=== PATIENT | female | born 1990 ===

== ENCOUNTER → 2022-09-29 14:05 | Outpatient (BNVA) | payer OTHER, SELFPAY | PROVIDERS: Referring Provider Family Medicine; Visit Provider Nurse Practitioner Family | DX: S89.91XA Unspecified injury of right lower leg, initial encounter (principal); X50.9XXA Other and unspecified overexertion or strenuous movements or postures, initial encounter | CPT/HCPCS: 99203 ==

== ENCOUNTER 2022-09-29 16:06 | Outpatient (CLI) | payer OTHER, SELFPAY | END 2022-09-29 16:07 | disposition home or self-care (01) | LOC: SPT 16:07 | PROVIDERS: Visit Provider Nurse Practitioner Family | DX: Z46.89 Encounter for fitting and adjustment of other specified devices (principal); M25.561 Pain in right knee | CPT/HCPCS: 97760; L1812 ==

== ENCOUNTER 2022-10-18 14:10 | Outpatient (CLI) | payer OTHER, SELFPAY ==
--- NOTE | 2022-10-18 14:30 | MR_ITS ---
WS: [id number] MRI RIGHT KNEE NONCONTRAST TECHNIQUE: Axial PD, coronal PD fat sat, coronal PD, sagittal PD, and sagittal PD fat-sat images obta ined. CLINICAL INFORMATION: pain COMPARISON: None. FINDINGS: Distal quadriceps and patella tendons are intact. Normal ACL and PCL. Tiny suprapatellar effusion. Normal patella. Normal medial and lateral patellar tenaculum. Normal medial and lateral collateral li gaments. Normal medial meniscus. Radial type tear involving the lateral meniscus with peripheral extrusion of the lateral meniscus. Th is extends to the periphery with blunting of the anterior horn. MR/MR knee RT wo con* [id number] IMPRESSION: 1. Normal ACL and PCL. 2. Acute appearing radial type tear involving the lateral meniscus with periph eral extrusion. Blunting of the anterior horn. Meniscal tear extends to the per iphery. 3. Normal medial meniscus. 4. Medial and lateral collateral ligaments are intact. Outbridge grading:
== END 2022-10-18 14:11 | disposition home or self-care (01) ==
PROVIDERS: Visit Provider Nurse Practitioner Family
DX: S83.281A Other tear of lateral meniscus, current injury, right knee, initial encounter (principal); X58.XXXA Exposure to other specified factors, initial encounter
CPT/HCPCS: 73721

== ENCOUNTER → 2022-10-19 11:09 | Outpatient (BNVA) | payer OTHER, SELFPAY | PROVIDERS: Visit Provider Nurse Practitioner Family | DX: Z01.818 Encounter for other preprocedural examination (principal); S89.91XA Unspecified injury of right lower leg, initial encounter; S83.281A Other tear of lateral meniscus, current injury, right knee, initial encounter; X50.9XXA Other and unspecified overexertion or strenuous movements or postures, initial encounter; Y93.B9 Activity, other involving muscle strengthening exercises | CPT/HCPCS: 36415; 80053; 81001; 85025; 99214 ==

== ENCOUNTER 2022-11-03 08:51 | Day surgery (SDC) | payer OTHER, SELFPAY ==
[2022-11-02 12:57] VITALS: BMI 26.4
[2022-11-03] VITALS (10 sets, daily range): BP systolic 104–128; BP diastolic 67–90; PULSE 63–81; RESP 16–20; TEMP 36.8–36.9; O2SAT 97–100
[2022-11-03] MEDS: ketorolac 30 mg/mL INJ IVP (09:27)
[2022-11-03] MEDS: acetaminophen 1,000 MG/100 ML PIGGYBACK 400 MG IV (09:27)
[2022-11-03] MEDS: sodium chloride 0.9% 1,000 ML 30 ML IV (09:28)
[2022-11-03] MEDS: scopolamine 1.5 Patch 1 PATCH TRANSDERMA (09:39)
--- NOTE | 2022-11-03 09:55 | W.PM.OPSUD ---
Surgery/Procedure H&P Update DATE OF PROCEDURE: November 03, 2022 DATE H&P PERFORMED: 10/19/22 CHANGES TO PREVIOUS DOCUMENTATION: None. No change in HPI from office visit on 10/19/2022. Reviewed patient's MRI she does have a right knee lateral meniscus tear we talked about her treatment options today in preop as this is the first time meeting this patient. She understands her tear pattern as well as the plans for surgery which will be a right knee diagnostic and surgical arthroscopy with partial lateral meniscectomy versus repair. Patient understands the risk benefits complication alternatives with surgery and elects proceed with surgical intervention. All questions answered. PREOP DIAGNOSIS: Right knee lateral meniscus tear PRIMARY INDICATION FOR PROCEDURE: Right knee lateral meniscus tear PLANNED PROCEDURE: Operation Date: 11/03/22 11:05 Proposed Procedures p Right knee diagnostic and surgical arthroscopy with lateral meniscectomy versus meniscal repair 38986,S89.90XA,S83.289A(Right) - Jaspreet Moreno DO
[2022-11-03 10:06] LABS: OR HCG Qualitative Urine Negative (Negative)
--- NOTE | 2022-11-03 10:06 | ANES.PREANE2 ---
Pre-Anesthetic Assessment Height/Weight: Height 1.52 m Weight 61.235 kg Temp Pulse Resp BP Pulse Ox O2 Del Method 98.5 F 63 16 111/76 99 Room Air 11/03/22 09:11 11/03/22 09:11 11/03/22 09:11 11/03/22 09:11 11/03/22 09:11 11/03/22 09:24 Preop Diagnosis: Right knee lateral meniscus tear Operation Date: 11/03/22 11:05 Proposed Procedures p Right knee diagnostic and surgical arthroscopy with lateral meniscectomy versus meniscal repair 63802,S89.90XA,S83.289A(Right) - Jaspreet Josh, DO Familial anesthetic complications: none Was Beta Fabian taken within 24 hours: N/A Was Clonidine taken within 24 hours: N/A Last intake: Intake Last Liquid Date 11/02/22 Last Liquid Time 21:00 Last Solid Date 11/02/22 Last Solid Time 21:00 Social No alcohol and No tobacco Exam alert, oriented x 3, clear to auscultation bilaterally and regular rate & rhythm Airway Submandibular: within normal limits Cervical ROM: within normal limits Mallampati: Class II Dentition: full History/ROS No significant history except as noted Anesthetic Plan ASA status: 1 Anesthesia: General and Regional (specify below) (right adductor blk) Medications/Allergies Home Medications Medication Instructions Recorded Confirmed Last Taken Type Hinge Knee Brace #1 ea 09/29/22 10/19/22 Unknown Rx acetaminophen 500 mg tablet 500 mg PO Q6H PRN Pain 11/02/22 11/03/22 10/31/22 History aspirin 81 mg tablet,delayed 81 mg PO DAILY 2 weeks #14 tabs 11/03/22 Unknown Rx release hydrocodone 5 mg-acetaminophen 325 1 tab PO Q6H PRN pain 5 days #20 11/03/22 Unknown Rx mg tablet tabs ondansetron 4 mg disintegrating 4 mg PO DAILY PRN nausea and 11/03/22 Unknown Rx tablet vomiting 3 days #9 tabs Allergies Allergy/AdvReac Type Severity Reaction Status Date / Time No Known Allergies Allergy Verified 11/03/22 09:16 Current Medications Generic Name Dose Route Start Last Admin Trade Name Freq PRN Reason Stop Dose Admin Sodium Chloride 1,000 mls @ 30 mls/hr 11/03/22 09:15 11/03/22 09:28 Sodium Chloride 0.9% IV 11/04/22 09:14 30 mls/hr .Q24H ARIELLE Administration Data Anesthesia Cardiac Studies: No Data to Display
[2022-11-03] MEDS: ceFAZolin 2,000 MG in sodium chloride 0.9% (plus) 50 ML 100 MG IV (10:09)
--- NOTE | 2022-11-03 10:39 | ANES.PROC ---
Anesthesia Procedures Procedure/Date: 11/03/22 Nerve Block ^: Nerve Block 1: Main Anesthesia: general anesthesia Time Out Performed: Yes Consent: requested by attending/covering physician, from patient, risks and benefits reviewed and patient agrees to proceed Nerve block location: adductor canal (right) Anesthesia monitors applied: pulse oximetry, EKG, BP cuff and oxygen Nerve block position: supine Anesthetic Used: ropivicaine 0.5% Amount of anesthesia used (mL): 20 Ultrasound used to: recognize landmarks Nerve Stimulator Used?: No Interscalene/Femoral BLK: 4 stimuplex 21 g needle used for position and inplane approach Injection: neg aspiration of heme Patient Tolerated Procedure: well Complications: none
[2022-11-03] MEDS: lidocaine-epi 2% 20 mL INJ 40 ML INJECTION (10:46)
--- NOTE | 2022-11-03 11:08 | PM.OP2 ---
Brief Operative Note Date of procedure: 11/03/22 Pre-op diagnosis: Right knee lateral meniscus tear Post-op diagnosis: other (Right knee lateral meniscus tear and extensive synovitis) Procedure Done: Right knee diagnostic and surgical arthroscopy with partial lateral meniscectomy and extensive synovectomy Surgeon: Jaspreet Moreno Estimated blood loss (mL): 5 Complications: none Post-op Plan: Patient may weight-bear as tolerate to the operative extremity-keep pain below threshold Utilize crutches as needed Encourage knee range of motion Ice and elevate as needed for pain and swelling Take pain medication as prescribed Take antinausea medication as needed Take aspirin 81 mg once daily for blood clot prevention May supplement for pain with ibuprofen [id number] as needed Patient should leave dressing on in place for 72 hours, at that time may remove all dressings leave sutures in place may rinse incisions with warm soapy water pat dry and redress with dry dressing. No baths or soaks Follow-up in the orthopedic office in 2 weeks Contact the office for any questions or concerns Condition: stable Disposition: PACU Coding Level of Care Code Acute Code for Dori Ellington
--- NOTE | 2022-11-03 11:12 | PM.PACU ---
PACU note Narrative: Patient is a 32-year-old female who just underwent a right knee diagnostic and surgical arthroscopy with lateral meniscectomy and extensive synovectomy. pt transferred to PACU in stable condition. She is awake and alert. Dressing is dry and in place. Pt can wiggle toes and plantarflex and dorsiflex foot. she can perform straight leg raise, Femoral nerve intact. He has sensation to foot. Distal pulses are palpable toes are warm and well-perfused. Pain is controlled. Exam: awake Disposition: discharged
--- NOTE | 2022-11-03 11:36 | PM.OP ---
Operative Report Date of procedure: November 03, 2022 Pre-op diagnosis: Preop Diagnosis Right knee lateral meniscus tear Senior Communications Specialist: Doron Moreno PA-C PA-C was utilized as an child life assistant in this case for leg position as well as addressing of instrumentation and assistance with executing arthroscopy procedure. He also was used and assistance with closing. Procedure: Post-op diagnosis: Right knee lateral meniscus tear Right knee extensive synovitis Procedure done: Right knee diagnostic and surgical arthroscopy partial lateral meniscectomy Right knee diagnostic and surgical arthroscopy with extensive synovectomy of the medial lateral and patellofemoral compartments Surgeon: Jaspreet Moreno DO Estimated blood loss: 2 Tourniquet: No tourniquet was used IV fluids: See anesthesia record Complications: None Findings: See operative report narrative Condition: stable Disposition: same day Brief History: Patient is a 32-year-old female with right knee pain.? Patient has failed conservative treatment who has been worked up for right? knee pain in the outpatient setting. MRI findings consistent with tear of the lateral meniscus. talked in the office about treatment options patient would like to proceed with a right knee diagnostic and surgical arthroscopy with partial lateral meniscectomy versus repair.? Patient understand the ins and outs of the procedure the risk benefits complication alternatives to treatment options.? Understanding risk of surgery they agree to proceed with surgical intervention.? Understanding this and patient agree to proceed with surgical intervention all questions answered. Procedure: Patient seen and evaluated in the preoperative holding area.? Consent was reviewed and signed with patient.? Correct extremity was then marked.? Patient seen evaluated Anesthesia Department once cleared for surgery patient was taken back to the operative suite.? Patient was transported onto the OR table in supine position.? All bony prominences well-padded patient was appropriate secured to the bed.? Once appropriately anesthetized a nonsterile tourniquet was applied to the right thigh.? The right lower extremity was then prepped and draped in standard orthopedic fashion.? Final timeout performed.? Patient received appropriate preoperative antibiotics. Patient received local anesthetic of lidocaine with epinephrine into the joint as well as around the portal sites.? No tourniquet was inflated A standard 2 portal vertical incision diagnostic and surgical arthroscopy of the right knee was performed in standard fashion.? Small stab incision made in the inferolateral portal introduced trocar and arthroscope into the suprapatellar pouch.? Suprapatellar pouch was subsequently visualized and found to have significant synovitis but no loose bodies.? Patient had noticeable significant inflamed infrapatellar fat pad and thickening hypertrophic within the patellofemoral compartment.? ?The medial gutter was free of loose bodies I then introduced the arthroscope into the medial compartment.? Within the medial compartment I then established my inferior medial working portal utilizing spinal needle outside in technique.? Once established I then visualized our articular cartilage of the medial compartment with a valgus stress.? 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 Next I inspected the meniscus.? With an arthroscopic probe was utilized to visual? all aspects of the meniscus.? Meniscal root was found to be intact.? Meniscus was found to be completely intact and no evidence of tear and no articular injury. Next, I then performed a synovectomy of the medial compartment.? ? This completed medial compartment work. Next a introduced the arthroscope to the intercondylar notch.? PCL and ACL were intact. patient had significant thickening of the infrapatellar fat pad spanning into the medial and lateral compartments.? I then performed an extensive synovectomy with the arthroscopic shaver of the patellofemoral medial and lateral compartments as well as the intercondylar notch. Advance the scope into the retrocruciate space and no loose bodies were found. Next I introduced the arthroscope into the lateral compartment the lateral compartment was found to have grade 0-1 chondromalacia.? Lateral meniscus was found to be torn at the anterior to body junction. This tear was found to be radial in nature and was in the white white zone. There was also a small horizontal component in the inferior leaflet was noted to be in the white white zone as well as light red zone. Given the complexity of the tear this is not going to be amenable for repair and as result I elected to proceed with a partial lateral meniscectomy this was carried out with basket forceps as well as arthroscopic shaver and thermal wand and taken this to stable meniscal tissue. This completed the partial lateral meniscectomy. No chondroplasty was performed as patient had stable articular cartilage. The root was intact.? ? This completed my work of the lateral compartment and then performed a synovectomy of the lateral compartment.? Next of the arthroscope was placed into the lateral gutter and this was free of loose bodies.? Finally I reintroduced the arthroscope into the patellofemoral compartment.? The patellofemoral was found to have grade 0 chondromalacia of the patellofemoral compartment.? At this point I utilized arthroscopic shaver as well as thermal wand to perform extensive synovectomy of the patellofemoral compartment. This completed my work of the patellofemoral space.? I then switch my portal sites to the medial working portal.? Completed the rest of my synovectomy and the rest of my examination arthroscopy was normal. All fluid was suctioned from the joint.? ?All instruments were withdrawn.? Portal sites were closed with interrupted nylon suture.? portal sites were then covered with with Xeroform 4 x 4's ABD Curlex and Gigi wrap.? Patient was then subsequently awakened from anesthesia and taken to PACU in stable condition. Disposition: Patient taken to PACU in stable condition recovering well.? Will receive appropriate discharge structure as well as pain medication postoperatively as well as? DVT prophylaxis.we will have patient follow-up with us in the office in 2 weeks.? We will weightbearing as tolerated to the right lower extremity.? Patient understands and agrees with current plan.? All questions answered.
[2022-11-03] MEDS: HYDROcodone-acetaminophen 5-325 mg Tablet 1 TAB PO (12:13)
--- NOTE | 2022-11-03 13:29 | ANE.PACU2 ---
Inpatient post-anesthesia follow up: Airway intact: Yes Vital signs: Temperature 98.2 F Pulse Rate 70 Respiratory Rate 16 Blood Pressure 112/79 Pulse Oximetry 97 Oxygen Delivery Me thod Room Air Oxygen Flow Rate 6 Fraction of Inspir ed Oxygen Hydration adequate: Yes Nausea and vomiting: No Pain level: 2 Mental status: Baseline
== END 2022-11-03 12:40 | disposition home or self-care (01) ==
PROVIDERS: Visit Provider Student in an Organized Health Care Education/Training Program
PROC: (CPT 29870; principal; 2022-11-03 10:55)
DX: S83.281A Other tear of lateral meniscus, current injury, right knee, initial encounter (principal); X58.XXXA Exposure to other specified factors, initial encounter; M65.88 Other synovitis and tenosynovitis, other site
CPT/HCPCS: 29876; 29881; 81025; 84703; J0131; J0690; J1100; J1885; J2405; J2704; J2795; J3010; J7030

== ENCOUNTER → 2022-11-22 09:53 | Outpatient (BNVA) | payer OTHER, SELFPAY | PROVIDERS: Visit Provider Student in an Organized Health Care Education/Training Program | DX: Z98.890 Other specified postprocedural states (principal) | CPT/HCPCS: 99024 ==

== ENCOUNTER → 2023-01-03 08:48 | Outpatient (BNVA) | payer OTHER, SELFPAY | PROVIDERS: Visit Provider Student in an Organized Health Care Education/Training Program | DX: Z98.890 Other specified postprocedural states (principal) | CPT/HCPCS: 99024; 99213 ==

== ENCOUNTER 2023-04-06 11:33 | Outpatient (CLI) | payer OTHER, SELFPAY | END 2023-04-06 11:34 | disposition home or self-care (01) | LOC: SPT 11:34 | PROVIDERS: Visit Provider Student in an Organized Health Care Education/Training Program | DX: Z47.89 Encounter for other orthopedic aftercare (principal); M25.561 Pain in right knee | CPT/HCPCS: 97760; 99213; L1812 ==

== ENCOUNTER → 2023-12-12 10:06 | Outpatient (BNVA) | payer OTHER, SELFPAY | PROVIDERS: Visit Provider Student in an Organized Health Care Education/Training Program | DX: Z98.890 Other specified postprocedural states (principal) | CPT/HCPCS: 99213 ==